=== PATIENT | male | born 1970 | race Caucasian/White ===

== ENCOUNTER 2019-11-17 10:23 | Inpatient (IN) | payer MEDICAID ==
[~2019-11-17] VITALS: Ht 180.3 cm; Wt 113.0 kg
[~2019-11-17 10:23] MED LIST: GLIP5TAB10 PO; HUMALIN N SC; HUMALOG; LISI-170 PO; SITA1TBM4 PEG; SULF-169 PO
[2019-11-17 12:36] VITALS: BP 128/86
[2019-11-17] MEDS ORDERED: AMLO5TAB10 PO (12:38)
[2019-11-17] MEDS ORDERED: ATOR40TA PO (12:39)
[2019-11-17] MEDS ORDERED: CILO50TA PO (12:39)
[2019-11-17] MEDS ORDERED: INSU100C SQ-INSULIN (12:41)
[2019-11-17] MEDS ORDERED: INSU100V8 SQ (12:41)
[2019-11-17] MEDS ORDERED: METO25TA4 PO (12:42)
[2019-11-17] MEDS ORDERED: LOSA25TA25 PO (12:42)
[2019-11-17] MEDS ORDERED: ONDANSETRON 2MG/ML, 2ML ONE (13:25)
[2019-11-17] MEDS ORDERED: PLEASE ENTER HEIGHT MC SCH (13:30)
[2019-11-17] MEDS: ONDANSETRON 2MG/ML, 2ML IVPush PRN ×2 (13:33→21:14)
[2019-11-17] MEDS ORDERED: ACETAMINOPHEN 325 MG TABLET PO PRN (14:00)
[2019-11-17 14:18] LABS: MEAN CORPUSCULAR HGB CONC 33.6 g/dL (33.2-36.2); MEAN PLATELET VOLUME 9.3 fL (7.4-10.4); PLATELET COUNT 347 x10^3/uL (130-400); RED BLOOD COUNT 4.34 x10^6/uL (4.38-5.82); RED CELL DISTRIBUTION WIDTH 13.5 % (9.4-14.8)
[2019-11-17 14:29] LABS: ALANINE AMINOTRANSFERASE 66 U/L (12-78); ALBUMIN 2.2 g/dL (3.4-5.0); ANION GAP 11 mmol/L (5-15); CALCIUM 8.5 mg/dL (8.5-10.1); CHLORIDE 106 mmol/L (98-107); CREATININE 3.92 mg/dL (0.7-1.3)
[2019-11-17 14:32] LABS: ALKALINE PHOSPHATASE 135 U/L (45-117); BILIRUBIN,TOTAL 0.3 mg/dL (0.2-1.0); TOTAL PROTEIN 7.1 g/dL (6.4-8.2)
[2019-11-17 14:49] LABS: BASOPHILS # (AUTO) 0.01 x10^3/uL (0-0.1); BASOPHILS % (AUTO) 0 % (0-1); EOSINOPHILS % (AUTO) 0 % (1-7); LYMPHOCYTES % (AUTO) 6 % (22-44); MD SCAN; MONOCYTES # (AUTO) 1.03 x10^3/uL (0.2-0.8); MONOCYTES % (AUTO) 5 % (2-9); NEUTROPHILS # (AUTO) 16.99 x10^3/uL (1.8-6.8); NEUTROPHILS % (AUTO) 89 % (42-75)
[2019-11-17] MEDS ORDERED: PHARMACY MAY ADJ FOR RENAL FX MC PRN (15:30)
[2019-11-17] MEDS ORDERED: PHARMACOKINETIC MONITORING MC PRN (15:30)
[2019-11-17] MEDS ORDERED: HEPARIN 5,000 UNITS/ML, 1ML IV ONE ×2 (15:30)
[2019-11-17] MEDS ORDERED: PHARMACOKINETIC CONSULTATION MC ONE (15:30)
[2019-11-17] MEDS ORDERED: HEPARIN 5,000 UNITS/ML, 1ML IV PRN ×2 (15:30)
[2019-11-17] MEDS ORDERED: HEPARIN 25,000 UNITS/250ML PMX 250 ML IV PRN (15:30)
[2019-11-17] MEDS ORDERED: VANCOMYCIN PER PHARMACY MC PRN (15:30)
[2019-11-17] MEDS: HEPARIN 25,000 UNITS/250ML PMX 250 ML IV PRN (15:44)
[2019-11-17] MEDS ORDERED: DEXTROSE 50%, 50ML SYRINGE IVPush PRN (16:30)
[2019-11-17] MEDS ORDERED: GLUCAGON 1 MG IM PRN (16:30)
[2019-11-17] MEDS ORDERED: DEXTROSE 4 GM TAB.CHEW PO PRN (16:30)
[2019-11-17] MEDS: AMPICILLIN/SULBACTAM 1,500 MG in SODIUM CHLORIDE 0.9% 50 ML IV SCH (16:54)
[2019-11-17] MEDS ORDERED: PROMETHAZINE 25 MG/ML, 1ML IM PRN (17:00)
[2019-11-17] MEDS ORDERED: NITROGLYCERIN 0.4 MG/SPRAY SL PRN (17:00)
[2019-11-17] MEDS ORDERED: NITROGLYCERIN 0.4 MG BOTTLE (25 TABS) SL PRN (17:00)
[2019-11-17] MEDS ORDERED: VANCOMYCIN 2,500 MG in SODIUM CHLORIDE 0.9% 500 ML IV ONE (17:00)
[2019-11-17] MEDS: INSULIN LISPRO 100 UNITS/ML, PEN SQ-INSULIN SCH ×2 (18:37→21:07)
[2019-11-17] MEDS ORDERED: INSULIN LISPRO 100 UNITS/ML, PEN SQ-INSULIN SCH (21:00)
[2019-11-17] MEDS: SODIUM CHLORIDE FLUSH 10ML SYR IVF SCH (21:00)
[2019-11-17] MEDS ORDERED: ATORVASTATIN 40 MG TABLET PO SCH (21:00)
[2019-11-17] MEDS: CILOSTAZOL 100 MG TABLET PO SCH (21:07)
[2019-11-17] MEDS: MORPHINE SULFATE 4 MG/ML, 1ML IVPush PRN ×2 (21:14→21:49)
[2019-11-18] MEDS: AMPICILLIN/SULBACTAM 1,500 MG in SODIUM CHLORIDE 0.9% 50 ML IV SCH ×2 (02:59→18:34)
[2019-11-18 04:25] VITALS: BP 122/86
[2019-11-18 04:53] LABS: ANION GAP 13 mmol/L (5-15); CALCIUM 8.6 mg/dL (8.5-10.1); CHLORIDE 105 mmol/L (98-107)
[2019-11-18 05:16] LABS: ALANINE AMINOTRANSFERASE 60 U/L (12-78); ALKALINE PHOSPHATASE 125 U/L (45-117); BILIRUBIN,TOTAL 0.4 mg/dL (0.2-1.0); CREATININE 4.39 mg/dL (0.7-1.3); TOTAL PROTEIN 6.8 g/dL (6.4-8.2)
[2019-11-18 05:34] LABS: MEAN CORPUSCULAR HEMOGLOBIN 26.9 pg (27.5-34.5); MEAN CORPUSCULAR HGB CONC 32.8 g/dL (33.2-36.2); MEAN PLATELET VOLUME 10.2 fL (7.4-10.4); PLATELET COUNT 315 x10^3/uL (130-400)
[2019-11-18] MEDS ORDERED: ASPIRIN 325 MG TABLET PO SCH (06:00)
[2019-11-18 06:03] LABS: MD YES
[2019-11-18 06:05] LABS: <PLATELET ESTIMATE> ADEQUATE; <PLT MORPHOLOGY> NORMAL PLT MORPH; <RBC MORPHOLOGY> NORMAL; BANDS%(MANUAL) 2 % (0-7); LYMPHS% (MANUAL) 2 % (22-44); MONOS% (MANUAL) 4 % (2-9); SEG#(MANUAL) 22.91 x10^3/uL (1.8-6.8); SEGS% (MANUAL) 92 % (42-75)
[2019-11-18] MEDS: MORPHINE SULFATE 4 MG/ML, 1ML IVPush PRN (06:10)
[2019-11-18] MEDS: INSULIN LISPRO 100 UNITS/ML, PEN SQ-INSULIN SCH ×4 (08:30→21:52)
[2019-11-18] MEDS: METOPROLOL TARTRATE 25 MG TAB PO SCH (08:33)
[2019-11-18] MEDS: SODIUM CHLORIDE FLUSH 10ML SYR IVF SCH ×2 (08:34→21:51)
[2019-11-18] MEDS ORDERED: LORazepam 2 MG/ML, 1ML IVPush ONE ×2 (09:00→09:30)
[2019-11-18] MEDS ORDERED: MIDAZOLAM 1 MG/ML, 5ML ONE (09:00)
[2019-11-18] MEDS ORDERED: PROPOFOL 10 MG/ML, 100ML IV ONE (09:00)
[2019-11-18] MEDS ORDERED: AMLODIPINE 10 MG TAB PO SCH (09:00)
[2019-11-18] MEDS ORDERED: ETOMIDATE 20 MG/10 ML ONE (09:00)
[2019-11-18] MEDS: HEPARIN 25,000 UNITS/250ML PMX 250 ML IV PRN (11:49)
[2019-11-18] MEDS ORDERED: ETOMIDATE 20 MG/10 ML IVPush ONE (12:00)
[2019-11-18] MEDS ORDERED: MIDAZOLAM 1 MG/ML, 5ML IVPush ONE (12:00)
[2019-11-18] MEDS: PROPOFOL 100 ML IV PRN ×3 (12:15→21:19)
[2019-11-18] MEDS: NOREPINEPHRINE 8 MG in SODIUM CHLORIDE 0.9% 242 ML IV PRN ×2 (12:15→12:30)
[2019-11-18] MEDS ORDERED: ROCURONIUM 10MG/ML,5ML ONE ×2 (12:51→15:25)
[2019-11-18] MEDS ORDERED: MIDAZOLAM 1 MG/ML, 2ML ONE (12:51)
[2019-11-18] MEDS ORDERED: BISACODYL 10 MG SUPP PR PRN (13:00)
[2019-11-18] MEDS: PANTOPRAZOLE 40 MG IV IV SCH (13:00)
[2019-11-18] MEDS ORDERED: FENTANYL PF 100 MCG/2ML IVPush PRN (13:00)
[2019-11-18] MEDS ORDERED: LACTULOSE 20 GM/30 ML UDC NG PRN (13:00)
[2019-11-18] MEDS ORDERED: PHARMACY MAY ADJ FOR RENAL FX MC SCH (13:00)
[2019-11-18] MEDS ORDERED: SENNA 176 MG/5 ML ORAL SOL NG PRN (13:00)
[2019-11-18] MEDS ORDERED: SENNA/DOCUSATE TABLET NG PRN (13:00)
[2019-11-18] MEDS ORDERED: LIDOCAINE-MPF 1%, 2ML ENDO PRN (13:00)
[2019-11-18] MEDS ORDERED: TICAGRELOR 90 MG TABLET ONE (13:40)
[2019-11-18] MEDS ORDERED: LIDOCAINE 1%, 20ML ONE (13:41)
[2019-11-18] MEDS ORDERED: BIVALIRUDIN 250 MG ONE (13:41)
[2019-11-18 13:58] LABS: MICROSCOPIC INDICATED
[2019-11-18] MEDS ORDERED: PROPOFOL 50 ML ONE (15:24)
[2019-11-18] MEDS ORDERED: EPINEPHRINE 1 MG/ML, 1ML ONE (16:06)
[2019-11-18] MEDS ORDERED: HEPARIN 25,000 UNITS in DEXTROSE 20% 500 ML IV SCH (16:45)
[2019-11-18 17:38] LABS: PLATELET COUNT 448 x10^3/uL (130-400)
[2019-11-18 17:41] LABS: ANION GAP 15 mmol/L (5-15); CALCIUM 7.9 mg/dL (8.5-10.1); CHLORIDE 103 mmol/L (98-107); CREATININE 5.82 mg/dL (0.7-1.3)
[2019-11-18] MEDS ORDERED: INSULIN REGULAR 100 UNITS/ML, 3ML VIAL ONE (17:43)
[2019-11-18] MEDS ORDERED: SODIUM BICARB 8.4%, 50ML SYRINGE ONE (17:48)
[2019-11-18] MEDS ORDERED: DOBUTAMINE/D5W PMX 250 ML IV PRN (18:00)
[2019-11-18] MEDS ORDERED: HEPARIN 25,000 UNITS in DEXTROSE 10% 500 ML IV SCH (18:00)
[2019-11-18] MEDS ORDERED: SODIUM BICARBONATE 1 MEQ/ML, 50ML VIAL IVPush STA (18:00)
[2019-11-18 18:23] LABS: INTERNATIONAL NORMALIZED RATIO 6.72 (0.93-1.1); PROTHROMBIN TIME 72.6 Seconds (9.6-11.5)
[2019-11-18] MEDS ORDERED: SODIUM BICARBONATE 1 MEQ/ML, 50ML VIAL IVPush ONE (18:30)
[2019-11-18] MEDS: REGULAR INSULIN 100 UNITS in SODIUM CHLORIDE 0.9% 99 ML IV PRN (18:42)
[2019-11-18] MEDS ORDERED: SODIUM CHLORIDE 0.9%, 500ML IVBOLUS ONE (21:30)
[2019-11-18] MEDS ORDERED: SODIUM BICARB 8.4%, 50ML SYRINGE IVPush ONE (21:30)
[2019-11-18] MEDS: ATORVASTATIN 80 MG TABLET PO SCH (21:51)
[2019-11-18] MEDS: CILOSTAZOL 100 MG TABLET PO SCH (21:52)
[2019-11-18] MEDS: TICAGRELOR 90 MG TABLET PO SCH (21:52)
[2019-11-19] MEDS: SODIUM CHLORIDE 0.9%, 500ML IVBOLUS PRN ×5 (00:05→23:30)
[2019-11-19] MEDS: PROPOFOL 100 ML IV PRN ×4 (00:11→09:11)
[2019-11-19 01:40] LABS: MICROSCOPIC INDICATED
[2019-11-19] MEDS: AMPICILLIN/SULBACTAM 1,500 MG in SODIUM CHLORIDE 0.9% 50 ML IV SCH ×2 (03:09→15:34)
[2019-11-19 03:59] LABS: ALANINE AMINOTRANSFERASE 62 U/L (12-78); ALBUMIN 1.4 g/dL (3.4-5.0); ANION GAP 11 mmol/L (5-15); CALCIUM 7.5 mg/dL (8.5-10.1); CHLORIDE 108 mmol/L (98-107)
[2019-11-19 04:00] VITALS: BP 103/64
[2019-11-19 04:01] LABS: ALKALINE PHOSPHATASE 148 U/L (45-117); BILIRUBIN,TOTAL 0.4 mg/dL (0.2-1.0); CREATININE 5.55 mg/dL (0.7-1.3); TOTAL PROTEIN 5.5 g/dL (6.4-8.2); VANCOMYCIN,RANDOM 38.3 mcg/mL
[2019-11-19 04:10] LABS: MEAN CORPUSCULAR HEMOGLOBIN 26.9 pg (27.5-34.5); MEAN CORPUSCULAR HGB CONC 32.9 g/dL (33.2-36.2); MEAN PLATELET VOLUME 9.2 fL (7.4-10.4); PLATELET COUNT 269 x10^3/uL (130-400); RED CELL DISTRIBUTION WIDTH 13.9 % (9.4-14.8)
[2019-11-19 04:26] LABS: BASOPHILS # (AUTO) 0.19 x10^3/uL (0-0.1); BASOPHILS % (AUTO) 1 % (0-1); EOSINOPHILS # (AUTO) 0.04 x10^3/uL (0-0.4); EOSINOPHILS % (AUTO) 0 % (1-7); LYMPHOCYTES # (AUTO) 1.43 x10^3/uL (1-3.4); LYMPHOCYTES % (AUTO) 9 % (22-44); MD SCAN; MONOCYTES # (AUTO) 0.89 x10^3/uL (0.2-0.8); MONOCYTES % (AUTO) 6 % (2-9); NEUTROPHILS # (AUTO) 12.66 x10^3/uL (1.8-6.8); NEUTROPHILS % (AUTO) 83 % (42-75)
[2019-11-19] MEDS ORDERED: ASPIRIN 81 MG TABLET EC PO SCH ×2 (06:00→09:00)
[2019-11-19] MEDS: HEPARIN 25,000 UNITS in DEXTROSE 5% 500 ML IV SCH (06:14)
[2019-11-19] MEDS: INSULIN LISPRO 100 UNITS/ML, PEN SQ-INSULIN SCH ×5 (07:59→23:00)
[2019-11-19] MEDS: METOPROLOL TARTRATE 25 MG TAB PO SCH (08:16)
[2019-11-19] MEDS: PANTOPRAZOLE 40 MG IV IV SCH (08:44)
[2019-11-19] MEDS: SODIUM CHLORIDE FLUSH 10ML SYR IVF SCH ×2 (08:45→20:29)
[2019-11-19] MEDS: REGULAR INSULIN 100 UNITS in SODIUM CHLORIDE 0.9% 99 ML IV PRN ×2 (08:45→22:20)
[2019-11-19] MEDS: TICAGRELOR 90 MG TABLET PO SCH ×2 (08:45→20:33)
[2019-11-19] MEDS: DEXMEDETOMIDINE 400 MCG in SODIUM CHLORIDE 0.9% 96 ML IV PRN ×3 (11:12→20:29)
[2019-11-19] MEDS ORDERED: POTASSIUM CHLORIDE 10% 20 MEQ/15 ML UDC PO ONE (12:00)
[2019-11-19] MEDS ORDERED: HEPARIN 25,000 UNITS in SODIUM CHLORIDE 0.45% 495 ML IV PRN (14:00)
[2019-11-19] MEDS ORDERED: DOBUTAMINE/D5W PMX 250 ML IV PRN (18:00)
[2019-11-19] MEDS: ATORVASTATIN 80 MG TABLET PO SCH (20:32)
[2019-11-19] MEDS: CILOSTAZOL 100 MG TABLET PO SCH (20:33)
[2019-11-19] MEDS ORDERED: SODIUM CHLORIDE 0.9%, 500ML IVBOLUS ONE (21:30)
[2019-11-20] MEDS: INSULIN LISPRO 100 UNITS/ML, PEN SQ-INSULIN SCH ×6 (03:00→23:00)
[2019-11-20 04:00] VITALS: BP 106/67
[2019-11-20] MEDS: AMPICILLIN/SULBACTAM 1,500 MG in SODIUM CHLORIDE 0.9% 50 ML IV SCH ×2 (04:15→14:56)
[2019-11-20 04:33] LABS: MEAN CORPUSCULAR HEMOGLOBIN 26.5 pg (27.5-34.5); MEAN CORPUSCULAR HGB CONC 32.1 g/dL (33.2-36.2); MEAN PLATELET VOLUME 9.2 fL (7.4-10.4); PLATELET COUNT 239 x10^3/uL (130-400); RED BLOOD COUNT 3.23 x10^6/uL (4.38-5.82)
[2019-11-20 04:38] LABS: ANION GAP 11 mmol/L (5-15); CALCIUM 7.4 mg/dL (8.5-10.1); CHLORIDE 115 mmol/L (98-107); CREATININE 5.33 mg/dL (0.7-1.3)
[2019-11-20 05:05] LABS: BASOPHILS # (AUTO) 0.05 x10^3/uL (0-0.1); BASOPHILS % (AUTO) 0 % (0-1); EOSINOPHILS # (AUTO) 0.13 x10^3/uL (0-0.4); EOSINOPHILS % (AUTO) 1 % (1-7); LYMPHOCYTES # (AUTO) 1.45 x10^3/uL (1-3.4); LYMPHOCYTES % (AUTO) 10 % (22-44); MD SCAN; MONOCYTES # (AUTO) 0.91 x10^3/uL (0.2-0.8); MONOCYTES % (AUTO) 6 % (2-9); NEUTROPHILS # (AUTO) 11.75 x10^3/uL (1.8-6.8); NEUTROPHILS % (AUTO) 82 % (42-75)
[2019-11-20] MEDS ORDERED: POTASSIUM CHLORIDE 10% 40 MEQ/30 ML UDC PO ONE (05:30)
[2019-11-20] MEDS ORDERED: CALCIUM CHLORIDE 13.6 MEQ in SODIUM CHLORIDE 0.9% 100 ML IV ONE (05:30)
[2019-11-20] MEDS ORDERED: MAGNESIUM SULFATE 1 GM/2 ML ONE (08:00)
[2019-11-20] MEDS ORDERED: CALCIUM CHLORIDE 13.6 MEQ/10 ML ONE (08:00)
[2019-11-20] MEDS ORDERED: EPINEPHRINE SYRINGE 0.1 MG/ML, 10ML ONE (08:00)
[2019-11-20] MEDS: PANTOPRAZOLE 40 MG IV IV SCH (09:02)
[2019-11-20] MEDS: SODIUM CHLORIDE FLUSH 10ML SYR IVF SCH ×2 (09:02→20:25)
[2019-11-20] MEDS: DEXMEDETOMIDINE 400 MCG in SODIUM CHLORIDE 0.9% 96 ML IV PRN ×2 (09:15→18:20)
[2019-11-20] MEDS: METOPROLOL TARTRATE 25 MG TAB PO SCH (09:19)
[2019-11-20] MEDS: ASPIRIN 81 MG TABLET CHEW PO SCH (09:22)
[2019-11-20] MEDS: TICAGRELOR 90 MG TABLET PO SCH ×2 (09:22→20:25)
[2019-11-20] MEDS ORDERED: ALBUMIN HUMAN 5% 500 ML IV SCH (11:00)
[2019-11-20] MEDS ORDERED: ALBUMIN HUMAN 5% 500 ML IV ONE ×2 (11:00)
[2019-11-20] MEDS: HEPARIN 25,000 UNITS in DEXTROSE 5% 500 ML IV SCH (14:12)
[2019-11-20] MEDS: REGULAR INSULIN 100 UNITS in SODIUM CHLORIDE 0.9% 99 ML IV PRN (18:20)
[2019-11-20] MEDS: CILOSTAZOL 100 MG TABLET PO SCH (20:25)
[2019-11-20] MEDS: ATORVASTATIN 80 MG TABLET PO SCH (20:25)
[2019-11-21] MEDS: DEXMEDETOMIDINE 400 MCG in SODIUM CHLORIDE 0.9% 96 ML IV PRN ×2 (01:06→09:41)
[2019-11-21] MEDS: INSULIN LISPRO 100 UNITS/ML, PEN SQ-INSULIN SCH ×2 (02:49→06:35)
[2019-11-21] MEDS: AMPICILLIN/SULBACTAM 1,500 MG in SODIUM CHLORIDE 0.9% 50 ML IV SCH ×2 (03:16→15:34)
[2019-11-21 04:00] VITALS: BP 106/52
[2019-11-21 04:55] LABS: BASOPHILS # (AUTO) 0.05 x10^3/uL (0-0.1); BASOPHILS % (AUTO) 0 % (0-1); EOSINOPHILS # (AUTO) 0.09 x10^3/uL (0-0.4); EOSINOPHILS % (AUTO) 1 % (1-7); LYMPHOCYTES % (AUTO) 9 % (22-44); MD NO; MEAN CORPUSCULAR HEMOGLOBIN 27.2 pg (27.5-34.5); MEAN PLATELET VOLUME 9.2 fL (7.4-10.4); MONOCYTES # (AUTO) 0.57 x10^3/uL (0.2-0.8); MONOCYTES % (AUTO) 5 % (2-9); NEUTROPHILS # (AUTO) 10.01 x10^3/uL (1.8-6.8); NEUTROPHILS % (AUTO) 85 % (42-75); PLATELET COUNT 194 x10^3/uL (130-400); RED BLOOD COUNT 3.08 x10^6/uL (4.38-5.82); RED CELL DISTRIBUTION WIDTH 14.3 % (9.4-14.8)
[2019-11-21 05:09] LABS: ANION GAP 17 mmol/L (5-15); CALCIUM 7.9 mg/dL (8.5-10.1); CHLORIDE 115 mmol/L (98-107)
[2019-11-21 05:17] LABS: CREATININE 5.42 mg/dL (0.7-1.3); TRIGLYCERIDES 291 mg/dL (50-200); VANCOMYCIN,RANDOM 21.6 mcg/mL
[2019-11-21] MEDS: HEPARIN 5,000 UNITS/ML, 1ML SQ SCH ×2 (08:24→17:39)
[2019-11-21] MEDS: PANTOPRAZOLE 40 MG IV IV SCH (08:24)
[2019-11-21] MEDS: ASPIRIN 81 MG TABLET CHEW PO SCH (08:24)
[2019-11-21] MEDS: TICAGRELOR 90 MG TABLET PO SCH ×2 (08:24→21:42)
[2019-11-21] MEDS: SODIUM CHLORIDE FLUSH 10ML SYR IVF SCH ×2 (08:25→21:43)
[2019-11-21] MEDS: THIAMINE 200 MG in SODIUM CHLORIDE 0.9% 50 ML IV SCH (09:04)
[2019-11-21 09:40] LABS: ACETONE, SERUM Large (80mg/dL) (Negative)
[2019-11-21] MEDS ORDERED: FUROSEMIDE 40 MG/4 ML IV ONE (10:30)
--- NOTE | 2019-11-21 10:42 | NUR ---
TF GOAL: VITAL AF 1.2 @ 70ML/HR
[2019-11-21 12:36] LABS: ANION GAP 15 mmol/L (5-15); CALCIUM 8.5 mg/dL (8.5-10.1); CHLORIDE 117 mmol/L (98-107); CREATININE 5.71 mg/dL (0.7-1.3)
[2019-11-21 17:56] LABS: ANION GAP 14 mmol/L (5-15); CHLORIDE 116 mmol/L (98-107); CREATININE 5.82 mg/dL (0.7-1.3)
[2019-11-21] MEDS ORDERED: VANCOMYCIN 1,600 MG in SODIUM CHLORIDE 0.9% 250 ML IV ONE (21:00)
[2019-11-21] MEDS: CILOSTAZOL 100 MG TABLET PO SCH (21:42)
[2019-11-21] MEDS: ATORVASTATIN 80 MG TABLET PO SCH (21:42)
[2019-11-21] MEDS: PROPOFOL 100 ML IV PRN (21:56)
[2019-11-21 22:26] LABS: ANION GAP 10 mmol/L (5-15); CALCIUM 8.4 mg/dL (8.5-10.1); CHLORIDE 119 mmol/L (98-107)
[2019-11-22] MEDS: HEPARIN 5,000 UNITS/ML, 1ML SQ SCH ×3 (00:49→17:53)
[2019-11-22] MEDS: FILTER 0.22 MICRON IV PRN (01:29)
[2019-11-22] MEDS: AMIODARONE 450 MG in DEXTROSE 5% 241 ML IV PRN ×2 (01:29→08:56)
[2019-11-22] MEDS ORDERED: AMIODARONE 150 MG in DEXTROSE 5% 100 ML IV ONE ×2 (01:30→12:30)
[2019-11-22] MEDS: PROPOFOL 100 ML IV PRN ×2 (01:35→02:40)
[2019-11-22] MEDS: REGULAR INSULIN 100 UNITS in SODIUM CHLORIDE 0.9% 99 ML IV PRN ×3 (02:33→22:33)
[2019-11-22] MEDS: AMPICILLIN/SULBACTAM 1,500 MG in SODIUM CHLORIDE 0.9% 50 ML IV SCH ×2 (02:39→16:01)
[2019-11-22 05:00] VITALS: BP 115/55
[2019-11-22] MEDS ORDERED: VANCOMYCIN 1,600 MG in SODIUM CHLORIDE 0.9% 250 ML IV ONE (05:00)
[2019-11-22 05:27] LABS: MEAN CORPUSCULAR HEMOGLOBIN 26.4 pg (27.5-34.5); MEAN CORPUSCULAR HGB CONC 32.2 g/dL (33.2-36.2); PLATELET COUNT 231 x10^3/uL (130-400); RED BLOOD COUNT 2.96 x10^6/uL (4.38-5.82); RED CELL DISTRIBUTION WIDTH 13.9 % (9.4-14.8)
[2019-11-22 05:42] LABS: ANION GAP 11 mmol/L (5-15); CALCIUM 8.2 mg/dL (8.5-10.1); CHLORIDE 117 mmol/L (98-107); CREATININE 5.75 mg/dL (0.7-1.3)
[2019-11-22 06:19] LABS: BASOPHILS # (AUTO) 0.03 x10^3/uL (0-0.1); BASOPHILS % (AUTO) 0 % (0-1); EOSINOPHILS # (AUTO) 0.16 x10^3/uL (0-0.4); EOSINOPHILS % (AUTO) 1 % (1-7); LYMPHOCYTES # (AUTO) 1.49 x10^3/uL (1-3.4); LYMPHOCYTES % (AUTO) 12 % (22-44); MD SCAN; MONOCYTES # (AUTO) 0.26 x10^3/uL (0.2-0.8); MONOCYTES % (AUTO) 2 % (2-9); NEUTROPHILS # (AUTO) 10.81 x10^3/uL (1.8-6.8); NEUTROPHILS % (AUTO) 85 % (42-75)
[2019-11-22] MEDS ORDERED: FUROSEMIDE 40 MG/4 ML IV ONE ×2 (08:30→18:00)
[2019-11-22] MEDS: SODIUM BICARBONATE 650 MG TABLET PO SCH ×2 (08:49→21:27)
[2019-11-22] MEDS: ASPIRIN 81 MG TABLET CHEW PO SCH (08:49)
[2019-11-22] MEDS: POTASSIUM CHLORIDE 10% 20 MEQ/15 ML UDC PO SCH ×2 (08:50→21:27)
[2019-11-22] MEDS: TICAGRELOR 90 MG TABLET PO SCH ×2 (08:50→21:27)
[2019-11-22] MEDS: PANTOPRAZOLE 40 MG IV IV SCH (08:50)
[2019-11-22] MEDS: THIAMINE 200 MG in SODIUM CHLORIDE 0.9% 50 ML IV SCH (10:19)
[2019-11-22] MEDS: SODIUM CHLORIDE FLUSH 10ML SYR IVF SCH ×2 (10:23→21:28)
[2019-11-22] MEDS: FUROSEMIDE 40 MG/4 ML IV SCH ×2 (16:00→23:48)
[2019-11-22] MEDS: MORPHINE SULFATE 4 MG/ML, 1ML IVPush PRN (19:57)
[2019-11-22] MEDS ORDERED: POTASSIUM CHLORIDE 10% 40 MEQ/30 ML UDC PO ONE (20:00)
[2019-11-22 20:16] LABS: CLOSTRIDIUM DIFFICILE ANTIGEN NEGATIVE; CLOSTRIDIUM DIFFICILE TOXIN NEGATIVE (Negative)
[2019-11-22] MEDS: CILOSTAZOL 100 MG TABLET PO SCH (21:27)
[2019-11-22] MEDS: ATORVASTATIN 80 MG TABLET PO SCH (21:27)
[2019-11-22] MEDS: ONDANSETRON 2MG/ML, 2ML IVPush PRN (23:48)
[2019-11-23] MEDS ORDERED: LORazepam 2 MG/ML, 1ML IVPush PRN (01:00)
[2019-11-23] MEDS ORDERED: LORazepam 2 MG/ML, 1ML ONE (01:06)
[2019-11-23] MEDS: HEPARIN 5,000 UNITS/ML, 1ML SQ SCH ×2 (01:14→07:50)
[2019-11-23] MEDS: FILTER 0.22 MICRON IV PRN ×3 (01:22→16:33)
[2019-11-23] MEDS: AMIODARONE 450 MG in DEXTROSE 5% 241 ML IV PRN ×3 (01:22→22:46)
[2019-11-23] MEDS ORDERED: AMIODARONE 150 MG in DEXTROSE 5% 100 ML IV ONE ×3 (02:00→12:30)
[2019-11-23] MEDS: AMPICILLIN/SULBACTAM 1,500 MG in SODIUM CHLORIDE 0.9% 50 ML IV SCH ×2 (03:36→16:30)
[2019-11-23 04:00] VITALS: BP 113/69
[2019-11-23 04:27] LABS: ANION GAP 10 mmol/L (5-15); CALCIUM 8.4 mg/dL (8.5-10.1); CHLORIDE 118 mmol/L (98-107)
[2019-11-23 04:53] LABS: BASOPHILS # (AUTO) 0.04 x10^3/uL (0-0.1); BASOPHILS % (AUTO) 0 % (0-1); EOSINOPHILS # (AUTO) 0.09 x10^3/uL (0-0.4); EOSINOPHILS % (AUTO) 1 % (1-7); LYMPHOCYTES # (AUTO) 1.14 x10^3/uL (1-3.4); LYMPHOCYTES % (AUTO) 7 % (22-44); MD NO; MEAN CORPUSCULAR HEMOGLOBIN 26.6 pg (27.5-34.5); MEAN CORPUSCULAR HGB CONC 32.4 g/dL (33.2-36.2); MEAN PLATELET VOLUME 9.6 fL (7.4-10.4); MONOCYTES # (AUTO) 1.28 x10^3/uL (0.2-0.8); MONOCYTES % (AUTO) 8 % (2-9); NEUTROPHILS # (AUTO) 12.83 x10^3/uL (1.8-6.8); NEUTROPHILS % (AUTO) 83 % (42-75); PLATELET COUNT 289 x10^3/uL (130-400); RED BLOOD COUNT 3.09 x10^6/uL (4.38-5.82); RED CELL DISTRIBUTION WIDTH 13.6 % (9.4-14.8)
[2019-11-23] MEDS: INSULIN GLARGINE 100 UNITS/ML, PEN SQ-INSULIN SCH ×2 (07:48→20:15)
[2019-11-23] MEDS: PANTOPRAZOLE 40 MG IV IV SCH (07:50)
[2019-11-23] MEDS: FUROSEMIDE 40 MG/4 ML IV SCH ×3 (07:50→20:15)
[2019-11-23] MEDS ORDERED: HEPARIN 5,000 UNITS/ML, 1ML IV ONE (09:00)
[2019-11-23] MEDS ORDERED: HEPARIN 5,000 UNITS/ML, 1ML IV PRN (09:00)
[2019-11-23] MEDS: THIAMINE 200 MG in SODIUM CHLORIDE 0.9% 50 ML IV SCH (10:13)
[2019-11-23] MEDS: SODIUM CHLORIDE FLUSH 10ML SYR IVF SCH ×2 (10:14→20:15)
[2019-11-23] MEDS: HEPARIN 25,000 UNITS/250ML PMX 250 ML IV PRN (10:51)
[2019-11-23] MEDS: CARVEDILOL 3.125 MG TABLET PO SCH ×2 (11:40→16:45)
[2019-11-23] MEDS: INSULIN LISPRO 100 UNITS/ML, PEN SQ-INSULIN SCH ×3 (11:41→20:16)
[2019-11-23] MEDS: TICAGRELOR 90 MG TABLET PO SCH ×2 (12:38→20:15)
[2019-11-23] MEDS: ASPIRIN 81 MG TABLET CHEW PO SCH (12:38)
[2019-11-23] MEDS: POTASSIUM CHLORIDE 10% 20 MEQ/15 ML UDC PO SCH ×2 (12:38→20:14)
[2019-11-23] MEDS: SODIUM BICARBONATE 650 MG TABLET PO SCH ×2 (12:38→20:15)
[2019-11-23] MEDS ORDERED: LOPERAMIDE 1 MG/7.5 ML LIQUID PO SCH (16:00)
[2019-11-23] MEDS ORDERED: LOPERAMIDE 1 MG/7.5 ML LIQUID PO PRN (16:30)
[2019-11-23] MEDS: ATORVASTATIN 80 MG TABLET PO SCH (20:14)
[2019-11-23] MEDS: CILOSTAZOL 100 MG TABLET PO SCH (20:16)
[2019-11-24] MEDS: AMPICILLIN/SULBACTAM 1,500 MG in SODIUM CHLORIDE 0.9% 50 ML IV SCH ×2 (02:59→15:10)
[2019-11-24 03:20] VITALS: BP 106/73
[2019-11-24 04:44] LABS: ANION GAP 11 mmol/L (5-15); CALCIUM 7.9 mg/dL (8.5-10.1); CHLORIDE 114 mmol/L (98-107); CREATININE 6.38 mg/dL (0.7-1.3)
[2019-11-24 04:49] LABS: TRIGLYCERIDES 139 mg/dL (50-200)
[2019-11-24 04:54] LABS: MEAN CORPUSCULAR HEMOGLOBIN 26.6 pg (27.5-34.5); MEAN CORPUSCULAR HGB CONC 32.3 g/dL (33.2-36.2); MEAN PLATELET VOLUME 10.3 fL (7.4-10.4); PLATELET COUNT 337 x10^3/uL (130-400); RED BLOOD COUNT 3.13 x10^6/uL (4.38-5.82); RED CELL DISTRIBUTION WIDTH 14.1 % (9.4-14.8)
[2019-11-24] MEDS: FUROSEMIDE 40 MG/4 ML IV SCH (05:00)
[2019-11-24] MEDS: CARVEDILOL 3.125 MG TABLET PO SCH ×2 (05:01→18:02)
[2019-11-24] MEDS: AMIODARONE 450 MG in DEXTROSE 5% 241 ML IV PRN ×3 (05:03→18:32)
[2019-11-24] MEDS: HEPARIN 25,000 UNITS/250ML PMX 250 ML IV PRN (05:08)
[2019-11-24 05:48] LABS: BASOPHILS # (AUTO) 0.02 x10^3/uL (0-0.1); BASOPHILS % (AUTO) 0 % (0-1); EOSINOPHILS # (AUTO) 0.21 x10^3/uL (0-0.4); EOSINOPHILS % (AUTO) 1 % (1-7); LYMPHOCYTES # (AUTO) 0.98 x10^3/uL (1-3.4); LYMPHOCYTES % (AUTO) 6 % (22-44); MD SCAN; MONOCYTES # (AUTO) 0.73 x10^3/uL (0.2-0.8); MONOCYTES % (AUTO) 4 % (2-9); NEUTROPHILS # (AUTO) 14.82 x10^3/uL (1.8-6.8); NEUTROPHILS % (AUTO) 89 % (42-75)
[2019-11-24] MEDS ORDERED: PROPOFOL 100 ML IV ONE (06:42)
[2019-11-24 06:46] LABS: MEAN CORPUSCULAR HEMOGLOBIN 26.3 pg (27.5-34.5); MEAN CORPUSCULAR HGB CONC 31.3 g/dL (33.2-36.2); MEAN PLATELET VOLUME 10.2 fL (7.4-10.4); PLATELET COUNT 385 x10^3/uL (130-400); RED BLOOD COUNT 3.33 x10^6/uL (4.38-5.82); RED CELL DISTRIBUTION WIDTH 14.3 % (9.4-14.8)
[2019-11-24] MEDS ORDERED: SODIUM BICARB 8.4%, 50ML SYRINGE ONE ×2 (06:49→11:00)
[2019-11-24 06:53] LABS: INTERNATIONAL NORMALIZED RATIO 1.04 (0.93-1.1)
[2019-11-24 06:54] LABS: ALANINE AMINOTRANSFERASE 179 U/L (12-78); ALBUMIN 1.7 g/dL (3.4-5.0); ANION GAP 17 mmol/L (5-15); CHLORIDE 112 mmol/L (98-107); CREATININE 6.64 mg/dL (0.7-1.3)
[2019-11-24 06:57] LABS: ALKALINE PHOSPHATASE 285 U/L (45-117); BILIRUBIN,TOTAL 0.4 mg/dL (0.2-1.0); TOTAL PROTEIN 6.6 g/dL (6.4-8.2)
[2019-11-24] MEDS ORDERED: MAGNESIUM SULFATE 1 GM/2 ML ONE ×2 (06:58→11:00)
[2019-11-24] MEDS ORDERED: EPINEPHRINE SYRINGE 0.1 MG/ML, 10ML ONE (06:58)
[2019-11-24] MEDS ORDERED: SODIUM BICARBONATE 1 MEQ/ML, 50ML VIAL IVPush ONE (07:00)
[2019-11-24] MEDS ORDERED: CODE BLUE RESPONSE XX ONE (07:00)
[2019-11-24 07:34] LABS: BASOPHILS # (AUTO) 0.01 x10^3/uL (0-0.1); BASOPHILS % (AUTO) 0 % (0-1); EOSINOPHILS # (AUTO) 0.41 x10^3/uL (0-0.4); EOSINOPHILS % (AUTO) 2 % (1-7); LYMPHOCYTES # (AUTO) 3.08 x10^3/uL (1-3.4); LYMPHOCYTES % (AUTO) 14 % (22-44); MD SCAN; MONOCYTES # (AUTO) 0.51 x10^3/uL (0.2-0.8); MONOCYTES % (AUTO) 2 % (2-9); NEUTROPHILS # (AUTO) 17.68 x10^3/uL (1.8-6.8); NEUTROPHILS % (AUTO) 82 % (42-75)
[2019-11-24] MEDS: INSULIN LISPRO 100 UNITS/ML, PEN SQ-INSULIN SCH ×5 (07:45→22:57)
[2019-11-24] MEDS: INSULIN GLARGINE 100 UNITS/ML, PEN SQ-INSULIN SCH ×2 (07:45→18:07)
[2019-11-24] MEDS: SODIUM BICARBONATE 8.4% 150 MEQ in DEXTROSE 5% 1,000 ML IV SCH ×2 (07:55→18:32)
[2019-11-24] MEDS: ASPIRIN 81 MG TABLET CHEW PO SCH (08:36)
[2019-11-24] MEDS: SODIUM CHLORIDE FLUSH 10ML SYR IVF SCH ×2 (08:36→20:55)
[2019-11-24] MEDS: SODIUM BICARBONATE 650 MG TABLET PO SCH ×2 (08:36→20:55)
[2019-11-24] MEDS: PANTOPRAZOLE 40 MG IV IV SCH (08:36)
[2019-11-24] MEDS: TICAGRELOR 90 MG TABLET PO SCH ×2 (08:36→20:54)
[2019-11-24] MEDS: THIAMINE 200 MG in SODIUM CHLORIDE 0.9% 50 ML IV SCH (10:20)
[2019-11-24] MEDS ORDERED: PROPOFOL 100 ML IV PRN (10:24)
[2019-11-24] MEDS ORDERED: PHARMACY MAY ADJ FOR RENAL FX MC SCH (10:30)
[2019-11-24] MEDS ORDERED: CALCIUM CHLORIDE 10%, 10ML SYR ONE (11:00)
[2019-11-24 12:00] LABS: TRIGLYCERIDES 128 mg/dL (50-200)
[2019-11-24] MEDS: FILTER 0.22 MICRON IV PRN (12:28)
[2019-11-24] MEDS ORDERED: LIDOCAINE 1%, 10ML ONE (13:29)
[2019-11-24] MEDS: ATORVASTATIN 80 MG TABLET PO SCH (20:54)
[2019-11-24] MEDS: CILOSTAZOL 100 MG TABLET PO SCH (20:55)
[2019-11-25] MEDS: AMIODARONE 450 MG in DEXTROSE 5% 241 ML IV PRN ×3 (02:07→18:01)
[2019-11-25] MEDS: HEPARIN 25,000 UNITS/250ML PMX 250 ML IV PRN ×2 (02:10→20:34)
[2019-11-25] MEDS: INSULIN LISPRO 100 UNITS/ML, PEN SQ-INSULIN SCH ×6 (03:00→22:00)
[2019-11-25] MEDS: AMPICILLIN/SULBACTAM 1,500 MG in SODIUM CHLORIDE 0.9% 50 ML IV SCH ×2 (03:43→15:34)
[2019-11-25 04:01] LABS: BASOPHILS # (AUTO) 0.03 x10^3/uL (0-0.1); BASOPHILS % (AUTO) 0 % (0-1); EOSINOPHILS # (AUTO) 0.68 x10^3/uL (0-0.4); EOSINOPHILS % (AUTO) 4 % (1-7); LYMPHOCYTES # (AUTO) 1.71 x10^3/uL (1-3.4); LYMPHOCYTES % (AUTO) 10 % (22-44); MD NO; MEAN CORPUSCULAR HEMOGLOBIN 26.8 pg (27.5-34.5); MEAN CORPUSCULAR HGB CONC 32.6 g/dL (33.2-36.2); MEAN PLATELET VOLUME 9.7 fL (7.4-10.4); MONOCYTES # (AUTO) 0.77 x10^3/uL (0.2-0.8); MONOCYTES % (AUTO) 4 % (2-9); NEUTROPHILS # (AUTO) 14.65 x10^3/uL (1.8-6.8); NEUTROPHILS % (AUTO) 82 % (42-75); PLATELET COUNT 379 x10^3/uL (130-400); RED BLOOD COUNT 3.18 x10^6/uL (4.38-5.82); RED CELL DISTRIBUTION WIDTH 14.4 % (9.4-14.8)
[2019-11-25 04:09] LABS: ANION GAP 10 mmol/L (5-15); CALCIUM 7.6 mg/dL (8.5-10.1); CHLORIDE 104 mmol/L (98-107); CREATININE 4.51 mg/dL (0.7-1.3)
[2019-11-25 04:23] VITALS: BP 109/72
[2019-11-25] MEDS: CARVEDILOL 3.125 MG TABLET PO SCH ×2 (05:35→17:49)
[2019-11-25] MEDS: PROPOFOL 100 ML IV PRN ×2 (05:41→18:01)
[2019-11-25] MEDS: SODIUM BICARBONATE 8.4% 150 MEQ in DEXTROSE 5% 1,000 ML IV SCH (06:27)
[2019-11-25] MEDS: INSULIN GLARGINE 100 UNITS/ML, PEN SQ-INSULIN SCH ×2 (06:35→18:12)
[2019-11-25] MEDS: ASPIRIN 81 MG TABLET CHEW PO SCH (08:29)
[2019-11-25] MEDS: TICAGRELOR 90 MG TABLET PO SCH ×2 (08:29→21:23)
[2019-11-25] MEDS: PANTOPRAZOLE 40 MG IV IV SCH (08:33)
[2019-11-25] MEDS: SODIUM CHLORIDE FLUSH 10ML SYR IVF SCH ×2 (08:33→21:23)
[2019-11-25] MEDS: THIAMINE 200 MG in SODIUM CHLORIDE 0.9% 50 ML IV SCH (08:39)
[2019-11-25] MEDS ORDERED: FUROSEMIDE 40 MG/4 ML ONE (08:41)
[2019-11-25] MEDS ORDERED: FUROSEMIDE 100 MG/10 ML IV ONE (09:00)
[2019-11-25] MEDS: ATORVASTATIN 80 MG TABLET PO SCH (21:23)
[2019-11-25] MEDS: CILOSTAZOL 100 MG TABLET PO SCH (21:23)
[2019-11-26] MEDS: INSULIN LISPRO 100 UNITS/ML, PEN SQ-INSULIN SCH (03:00)
[2019-11-26] MEDS: AMPICILLIN/SULBACTAM 1,500 MG in SODIUM CHLORIDE 0.9% 50 ML IV SCH (03:17)
[2019-11-26 04:20] VITALS: BP 112/72
[2019-11-26] MEDS: CARVEDILOL 3.125 MG TABLET PO SCH (05:32)
[2019-11-26 05:48] LABS: MEAN CORPUSCULAR HEMOGLOBIN 25.9 pg (27.5-34.5); MEAN PLATELET VOLUME 9.8 fL (7.4-10.4); PLATELET COUNT 399 x10^3/uL (130-400); RED BLOOD COUNT 3.28 x10^6/uL (4.38-5.82); RED CELL DISTRIBUTION WIDTH 14.2 % (9.4-14.8)
[2019-11-26 05:53] LABS: CHLORIDE 100 mmol/L (98-107)
[2019-11-26 06:02] LABS: ALBUMIN 1.5 g/dL (3.4-5.0); ANION GAP 10 mmol/L (5-15); CALCIUM 7.2 mg/dL (8.5-10.1); CREATININE 4.32 mg/dL (0.7-1.3)
[2019-11-26 06:24] LABS: MD SCAN
[2019-11-26 06:25] LABS: BASOPHILS # (AUTO) 0.11 x10^3/uL (0-0.1); BASOPHILS % (AUTO) 1 % (0-1); EOSINOPHILS # (AUTO) 0.23 x10^3/uL (0-0.4); EOSINOPHILS % (AUTO) 2 % (1-7); LYMPHOCYTES # (AUTO) 2.03 x10^3/uL (1-3.4); LYMPHOCYTES % (AUTO) 13 % (22-44); MONOCYTES % (AUTO) 6 % (2-9); NEUTROPHILS # (AUTO) 12.61 x10^3/uL (1.8-6.8); NEUTROPHILS % (AUTO) 79 % (42-75)
[2019-11-26] MEDS ORDERED: MAGNESIUM SULFATE PMX 2GM/50ML 50 ML ONE (06:58)
== END 2019-11-26 07:17 | disposition expired | DRG 853 ==
LOC: CCU 12:13
PROVIDERS: ADMIT Thoracic Surgery (Cardiothoracic Vascular Surgery); ATTEND Internal Medicine
PROC: 5A0221D Assistance with Cardiac Output using Impeller Pump, Continuous (ICD-10-PCS; 2019-11-18)
PROC: 02HA3RZ Insertion of Short-term External Heart Assist System into Heart, Percutaneous Approach (ICD-10-PCS; 2019-11-18)
PROC: 4A023N7 Measurement of Cardiac Sampling and Pressure, Left Heart, Percutaneous Approach (ICD-10-PCS; 2019-11-18)
PROC: B2111ZZ Fluoroscopy of Multiple Coronary Arteries using Low Osmolar Contrast (ICD-10-PCS; 2019-11-18)
PROC: B2151ZZ Fluoroscopy of Left Heart using Low Osmolar Contrast (ICD-10-PCS; 2019-11-18)
PROC: 03HY32Z Insertion of Monitoring Device into Upper Artery, Percutaneous Approach (ICD-10-PCS; 2019-11-18)
PROC: 0T9B70Z Drainage of Bladder with Drainage Device, Via Natural or Artificial Opening (ICD-10-PCS; 2019-11-18)
PROC: 027135Z Dilation of Coronary Artery, Two Arteries with Two Drug-eluting Intraluminal Devices, Percutaneous Approach (ICD-10-PCS; principal; 2019-11-18 14:30)
PROC: 02PA3RZ Removal of Short-term External Heart Assist System from Heart, Percutaneous Approach (ICD-10-PCS; 2019-11-20)
PROC: 5A1945Z Respiratory Ventilation, 24-96 Consecutive Hours (ICD-10-PCS; 2019-11-20)
PROC: 0BH17EZ Insertion of Endotracheal Airway into Trachea, Via Natural or Artificial Opening (ICD-10-PCS; 2019-11-20)
PROC: 02HV33Z Insertion of Infusion Device into Superior Vena Cava, Percutaneous Approach (ICD-10-PCS; 2019-11-24)
PROC: B548ZZA Ultrasonography of Superior Vena Cava, Guidance (ICD-10-PCS; 2019-11-24)
PROC: 5A12012 Performance of Cardiac Output, Single, Manual (ICD-10-PCS; 2019-11-24)
PROC: 5A1D70Z Performance of Urinary Filtration, Intermittent, Less than 6 Hours Per Day (ICD-10-PCS; 2019-11-24)
PROC: 5A1D70Z Performance of Urinary Filtration, Intermittent, Less than 6 Hours Per Day (ICD-10-PCS; 2019-11-25)
DX: A41.9 Sepsis, unspecified organism (principal); E11.10 Type 2 diabetes mellitus with ketoacidosis without coma; G93.41 Metabolic encephalopathy; I21.4 Non-ST elevation (NSTEMI) myocardial infarction; I50.23 Acute on chronic systolic (congestive) heart failure; J69.0 Pneumonitis due to inhalation of food and vomit; J96.01 Acute respiratory failure with hypoxia; N17.0 Acute kidney failure with tubular necrosis; R65.21 Severe sepsis with septic shock; E87.1 Hypo-osmolality and hyponatremia; I13.0 Hypertensive heart and chronic kidney disease with heart failure and stage 1 through stage 4 chronic kidney disease, or unspecified chronic kidney disease; I47.1 Supraventricular tachycardia; M86.60 Other chronic osteomyelitis, unspecified site; N18.4 Chronic kidney disease, stage 4 (severe); Z99.11 Dependence on respirator [ventilator] status; D63.8 Anemia in other chronic diseases classified elsewhere; E66.9 Obesity, unspecified; Z68.34 Body mass index [BMI] 34.0-34.9, adult; E11.51 Type 2 diabetes mellitus with diabetic peripheral angiopathy without gangrene; E78.5 Hyperlipidemia, unspecified; E87.6 Hypokalemia; I25.119 Atherosclerotic heart disease of native coronary artery with unspecified angina pectoris; I25.5 Ischemic cardiomyopathy; I48.0 Paroxysmal atrial fibrillation; N14.1 Nephropathy induced by other drugs, medicaments and biological substances; T50.8X5A Adverse effect of diagnostic agents, initial encounter; Z79.4 Long term (current) use of insulin; Z87.891 Personal history of nicotine dependence; Z95.5 Presence of coronary angioplasty implant and graft; E11.22 Type 2 diabetes mellitus with diabetic chronic kidney disease; I46.9 Cardiac arrest, cause unspecified; Y92.89 Other specified places as the place of occurrence of the external cause
CPT/HCPCS: 33990; 36415; 36600; 77001; 92920; 93460; C9600; J3490; 71045; 80048; 80053; 80069; 80202; 81001; 82010; 82330; 82570; 82803; 82947; 82962; 83605; 83735; 83880; 84100; 84300; 84443; 84478; 84484; 85014; 85018; 85025; 85049; 85347; 85520; 85610; 85730; 86704; 86706; 87070; 87077; 87081; 87086; 87186; 87205; 87324; 87340; 90935; 92950; 93005; 93306; 93308; 93321; 93325; 93978; 94002; 94003; 94150; C1760; C1769; C1894; G0378; J0171; J0583; J1644; J1815; J1940; J2250; J2405; J2550; J2704; J3010; J3370; J3411; J3475; J7060; J7070; P9045; C1725; C1751; C1874; C1887; C9113; J0282; J0295; J1250; J1642; J2060; J2270; J7040; J7050; Q9967